=== PATIENT | female | born 1975 | race Caucasian/White ===

== ENCOUNTER → 2021-12-29 | Outpatient (CLI) | payer OTHER | LOC: MHCPAIN 13:33 | DX: M70.71 Other bursitis of hip, right hip (principal); M25.551 Pain in right hip | CPT/HCPCS: J3301 ==

== ENCOUNTER 2022-01-06 16:00 | Outpatient (RCR) | payer OTHER | END 2022-01-07 | disposition home or self-care (01) | LOC: MKS.ESL.PT | DX: M54.31 Sciatica, right side (principal) ==

== ENCOUNTER → 2022-02-24 | Outpatient (CLI) | payer OTHER | LOC: MHCPAIN 16:04 | DX: M54.31 Sciatica, right side (principal); M79.18 Myalgia, other site; M54.50 Low back pain, unspecified; M70.71 Other bursitis of hip, right hip; R10.2 Pelvic and perineal pain | CPT/HCPCS: G0463 ==

== ENCOUNTER 2022-05-20 08:09 | Outpatient (RCR) | payer SELFPAY | END 2022-06-09 | LOC: MKS.ESL.PT | DX: M54.31 Sciatica, right side (principal) ==

== ENCOUNTER → 2023-08-10 | Outpatient (CLI) | payer OTHER, BC | LOC: MHCPAIN 14:05 | DX: M54.2 Cervicalgia (principal); M51.36 Other intervertebral disc degeneration, lumbar region; M54.6 Pain in thoracic spine; M79.18 Myalgia, other site; G24.9 Dystonia, unspecified | CPT/HCPCS: G0463 ==